=== PATIENT | female | born 1985 | race Caucasian/White ===

== ENCOUNTER → 2018-08-15 | Outpatient (CLI) | payer BC, OTHER | LOC: ULTRA 15:54 | DX: K82.8 Other specified diseases of gallbladder (principal) ==

== ENCOUNTER 2018-08-18 13:38 | Inpatient (IN) | payer BC, OTHER ==
[~2018-08-18] VITALS: Ht 162.6 cm; Wt 82.2 kg
--- NOTE | ~2018-08-18 | O ---
[facility] [place] [address] OPERATIVE REPORT Name: STERLING VERA Room #: 417-I ADM IN M.R.#: [id number] Admission: 08/18/18 Attend Phys: Wilfredo Walden MD Discharge: Date of : 89 Report #: [id number] THIS REPORT FOR: //name// CC: Sharath Walden DATE OF SERVICE: 08/21/2018 PREOPERATIVE DIAGNOSES: Cholecystitis with cholelithiasis, common bile duct stone and obstructive jaundice, status post endoscopic retrograde cholangiopancreatography. POSTOPERATIVE DIAGNOSES: Cholecystitis with cholelithiasis, common bile duct stone and obstructive jaundice, status post endoscopic retrograde cholangiopancreatography plus acute cholecystitis with cholelithiasis. SURGEON: Wilfredo Walden M.D. ANESTHESIA: General anesthesia. PROCEDURE: Laparoscopic cholecystectomy with cholangiogram. COMPLICATIONS: None. ESTIMATED BLOOD LOSS: 30 mL. DESCRIPTION OF PROCEDURE: With the patient under general anesthesia, abdomen was prepped and draped in a sterile fashion. IV antibiotic was administered. Two grams Ancef was given. Timeout was performed. A 0.25% Marcaine was used at the skin. Curvilinear incision was made infraumbilically, measuring about 2 cm. The fascia was then opened under visualization. 0 Vicryl suture placed on the fascia for retraction. Veress needle was then placed through the peritoneum. Abdominal cavity was insufflated with CO2. The urinary bladder was noted to be moderately full. A straight catheter was performed at the end of the procedure. The gallbladder was noted to be a distended, thickened and reddish appearance, consistent with acute cholecystitis. There was chronic adhesion, fatty tissue to the gallbladder and also along the liver. The adhesions were taken down. Gallbladder was able to be lifted over the liver. Gallbladder was decompressed with a needle and drawn off about 40 mL of dark bilious fluid. The gallbladder was then grasped with graspers. The adhesions were peeled all the way down. The lymph node over the cystic artery was isolated. This was seen first. The cystic duct was pretty thickened. The artery was also thickened. I went ahead and freed up the lymph node and removed it. This allowed the cystic artery to be identified and isolated. The cystic artery was then clipped x 2 proximally and 1 distally and then divided. This then allowed better access to the cystic [address] [address] OPERATIVE REPORT Name: STERLING VERA Room #: 417-I [facility] IN M.R.#: [id number] Admission: 08/18/18 Attend Phys: Wilfredo Walden MD Discharge: Date of : 89 Report #: [id number] duct. The common duct was looked for and felt to be medial and posteriorly located. Cystic duct was pretty thick and scarred. I was able to use a Laparoscopic Peanut and bluntly free the cystic duct. Laparoscopic Peanut was used initially to free the cystic artery also. The cystic duct was too big to put the clips on. Opening was made in the cystic duct, just below the junction to the gallbladder. Cholangiogram catheter was placed. I could not get a clip around the cystic duct. Instead, the clip was placed on the catheter and side wall of the cystic duct that was open. This, however, did not preclude contrast from escaping out of the cannulation site. However, I was able to see the common duct filled on operative cholangiogram. Because of the dye leaking at the cannulation site, I could not get the dye to go through into the duodenum. I did see some trace into the duodenum. No stones were seen in the common duct at the ERCP. The cholangiogram catheter was then removed. The rest of the cystic duct in this cannulation site was then divided. The cystic duct was then ligated with 0 PDS Endoloop. This did go across the cystic duct well. The grasper was placed on the end of the gallbladder and the gallbladder was freed and it was divided from the liver bed. There was quite a bit of thickening here and it was fairly difficult to do this part. However, with steady progressive dissection, the gallbladder was freed. Gallbladder was placed in the specimen bag. The gallbladder was retrieved through the infraumbilical port. Due to the thickening in the gallbladder, the fascia had to be opened. Once part of the gallbladder was able to be brought out through the incision, the gallbladder was opened. Clamps were placed and allowed visualization of the inside of the gallbladder. Multiple stones were then removed from the gallbladder using an Allis clamps. Once the gallbladder stones were mostly removed, the gallbladder then came out. Trocars were then replaced. Liver bed was checked, hemostasis excellent. Irrigation was aspirated out. Clips were intact. No bleedings identified. The trocars were then removed and CO2 was evacuated as much as possible. The fascia defect infraumbilically was then closed with a 0 Vicryl [id number] x 3. Skin was irrigated, closed with 5-0 PDS. Steri-Strips and Band-Aids applied. The patient was taken to the recovery room. She had a straight catheterization and obtained about 100 mL. The patient was taken to the recovery room. By: [id number] Wilfredo Walden MD /nt
--- NOTE | ~2018-08-18 | P ---
[facility] [place] [place] [address] PROCEDURE REPORT Name: STERLING VERA Room #: 417-I [facility] IN M.R.#: [id number] Admission: 08/18/18 Attend Phys: Wilfredo Walden MD Discharge: 08/22/18 Date of : 89 Report #: [id number] THIS REPORT FOR: //name// CC: Sharath Walden MD DATE OF SERVICE: 08/19/2018 PROCEDURE PERFORMED: ERCP with sphincterotomy and stone removal. HISTORY OF PRESENT ILLNESS: The patient is a 33-year-old female noticing recently darkening in her urine. She was seen as an outpatient. Liver function tests were noted to be significantly elevated. No previous history of liver disease. Her bilirubin as an outpatient was in the 5 range, today is 8.6. AST 334, lipase 469, direct bilirubin 7.3, alkaline phosphatase 355, ALT 724. WBC is 11.2, hemoglobin 13.8. She underwent an ultrasound of the abdomen on 08/15/2018, which showed multiple gallstones and sludge within the gallbladder. No evidence of gallbladder wall thickening or pericholecystic fluid, positive Acosta sign was noted. She then underwent an MRCP yesterday, which showed cholelithiasis as well as choledocholithiasis. There is rather marked intrahepatic biliary ductal dilation, suggesting distal duct obstruction secondary to choledocholithiasis. Also, calculus was noted in the distal cystic duct. Plan is for ERCP. DESCRIPTION OF PROCEDURE: The risks and benefits of the procedure were explained to the patient, those risks including but not limited to bleeding, perforation, the risk of sedation as well as the potential risk for post-ERCP pancreatitis. She understood these risks and gave informed consent. The procedure was performed under general anesthesia in the Interventional Radiology suite. The patient had an hCG that was negative yesterday. She is already on IV meropenem every 8 hours. The patient was also given 50 mg indomethacin rectal suppository prior to the procedure. Next, using a standard Olympus side-viewing ERCP scope, the scope was placed in the patient's mouth and advanced under direct vision through the esophagus, stomach and into the second portion of the duodenum. The major papilla was identified and normal in appearance. Next, using a Donny-Cambiatta 0.025 dome tipped catheter, common bile duct was attempted to be cannulated. The pancreatic duct was cannulated several times. I tried several different positions as well as a long and short position of the scope without being able to advance the sphincterotome into the common bile duct. Therefore, a 0.021 sphincterotome was used and after several attempts, I was able to cannulate the common bile duct. A cholangiogram was then obtained. Several filling defects were noted consistent with stones. The distal common bile duct was mildly dilated, however, the intrahepatic near the bifurcation were more significantly dilated. At this point, a wire was advanced into the intrahepatic ducts and a sphincterotomy was performed without [facility] [address] [place] [address] PROCEDURE REPORT Name: STERLING VERA Room #: 417-I [facility] IN ..#: [id number] Admission: 08/18/18 Attend Phys: Wilfredo Walden MD Discharge: 08/22/18 Date of : 89 Report #: [id number] difficulty. At this point, a large amount of sludge and debris started exiting the sphincterotomy. The sphincterotome was then removed and a balloon catheter was then used. Several balloon sweeps were performed. A large amount of debris and small stones were removed with each balloon sweep. No significant further debris or stones was noted. At this point, a balloon occlusion cholangiogram was obtained. There did appear to be another filling defect. Therefore, the balloon catheter was removed leaving the guidewire in place and a wire basket was then inserted into the common bile duct. I then performed several sweeps with the wire basket and 2 further stones were removed at this point, more sweeps yielded no further stones. At this point, the bile that was draining was much more improved and clear in nature. At this point, the basket and wire removed. The scope was then withdrawn and the procedure terminated. The patient tolerated the procedure well. IMPRESSION: 1. Dilated common bile duct, but increased dilation of the bifurcation and intrahepatic ducts. 2. Status post sphincterotomy. 3. Large amount of sludge and debris were removed on balloon sweeps as well as wire baskets, several stones were also removed as described above. RECOMMENDATIONS: 1. Observe the patient post-procedure. 2. We will repeat liver function tests in the morning. 3. Plan is for a laparoscopic cholecystectomy with Dr. Wilfredo Walden tomorrow. Thank you for allowing me to participate in her care. <ELECTRONICALLY SIGNED> By: Ruslan Valentino MD 08/22/18 1530 [id number] Ruslan Valentino MD /nt
--- NOTE | ~2018-08-18 | H ---
[facility] [address] [place] [address] HISTORY AND PHYSICAL Name: STERLING VERA Room #: 417-I ADM IN .R.#: [id number] Admission: 08/18/18 Attend Phys: Wilfredo Walden MD Discharge: Date of : 89 Report #: [id number] THIS REPORT FOR: //name// CC: YEIMY Walden DATE OF SERVICE: 08/18/2018 ADMITTING DIAGNOSIS: Obstructive jaundice, likely due to an obstructing common bile duct stone. HISTORY OF PRESENT ILLNESS: The patient is a 33-year-old who has had heartburn for about 5-6 months. At one point, she went to urgent care, and the patient was felt to have heartburn and was given a GI cocktail. The patient complained of upper abdominal pain underneath the ribcage on both sides. This tends to occur at nighttime. She has had some pain that goes into her back. No nausea or vomiting. No family history of gallbladder disease that she is aware of. A month ago, the patient did have recurrence of the symptom. This was after weekend of going out with her friends. She ended up coming home and not feeling well. She has had associated bloating, increased gas and some diarrhea. She has felt tired for the last month. Last , the patient went to see Dr. Reeves's office and was seen by nurse practitioner. The patient did complain of dark urine and fudge candy maker color stool and continued abdominal discomfort and feeling of bloating and gas feeling. She had an appointment to see me today. The patient went back to the office and was noted on her labs from last that she is jaundiced. She was working to see me. She did have obvious jaundice when you look at her. Bilirubin was 5.4. The rest her liver enzymes were also elevated, alkaline phosphatase is 342. SGOT is 353, SGPT is 626. The patient's ultrasound did show gallstone sludge within the gallbladder, no gallbladder wall thickening. Bile duct was 6 mm. After seeing her in the office and finding that she has a complication of gallbladder disease with obstructive jaundice, likely common duct stone, she is recommended to be hospitalized and proceeding with treatment of her disease process. The patient understands the risk of developing cholangitis because the duct is obstructed. PAST MEDICAL HISTORY: She is healthy. No heart disease, lung disease, diabetes, no kidney or liver disease, no bleeding disorder, no history of blood clot. MEDICATIONS: The patient takes control. Last Saturday, she was started on Cipro and metronidazole for urinary tract infection. She was given some hydrocodone to take as needed. FAMILY HISTORY: Father had a brain aneurysm. He is alive at age 65. Mother is alive at age 64. There is cancer that runs in the family. [facility] [address] [place] [address] HISTORY AND PHYSICAL Name: STERLING VERA Room #: 417-I ADM IN M.R.#: [id number] Admission: 08/18/18 Attend Phys: Wilfredo Walden MD Discharge: Date of : 89 Report #: [id number] SOCIAL HISTORY: The patient works as an deputy prosecuting attorney. The patient does not smoke. She occasionally drinks. REVIEW OF SYSTEMS: No chest pain or shortness of breath. No headache or blurred vision. No numbness or weakness. Mild itching. PHYSICAL EXAMINATION: HEENT: She is obviously jaundiced, particularly in the sclerae. Pupils react to light. Extraocular muscles are intact. Oropharynx clear. NECK: Soft and supple, no masses, no JVD. LUNGS: Clear to auscultation. HEART: Regular rate and rhythm. No murmur or gallop. ABDOMEN: She does have moderate tenderness in the right upper quadrant. No mass, guarding or rigidity. No ascites. EXTREMITIES: No cyanosis, clubbing or edema. IMPRESSION: The patient is a 33-year-old who last noticed dark urine, light stool. She has had issues for 5-6 months of upper abdominal discomfort and bloating, increased gas. The patient also has felt tired and weak for the last month. The patient is found to have obstructive jaundice secondary to gallstone. She likely has complications from gallbladder disease with a stone, I believe now in the duct. The patient is recommended to be admitted for treatment of this disease and to prevent getting worse and developing cholangitis. The patient will be on IV fluids and n.p.o. We will consult Gastroenterology, and I did speak with Dr. Valentino. Possible MRCP. Possible ERCP tomorrow since she has eaten this morning. Liver function tests, CBC will be repeated in the morning. Pain medication and antinausea medicines ordered. We will go ahead and start her on Invanz IV antibiotics. <ELECTRONICALLY SIGNED> By: Wilfredo Walden MD 08/20/181221 01 19 Wilfredo Walden MD /nt
--- NOTE | ~2018-08-18 | PATH ---
[facility] [address] [place] [address] PATHOLOGY RPT PROCEDURE Name: STERLING VERA Room #: 417-I [facility] IN M.R.#: [id number] Admission: 08/18/18 Date of : 89 Discharge: 08/22/18 Report #: [id number] Path Case #: [id number] [facility] Accession Number: [id number] . 01 Material submitted: . GALLBLADDER . 01 Clinical history: . Cholecystitis, obstructive jaundice, cholelithiasis . 02 Diagnosis: Gallbladder, "gallbladder, cholecystectomy": - Subacute and chronic cholecystitis with cholelithiasis. . (SHA:mml; 08/25/18) QLM/08/25/2018 . 02 Electronically signed: . Arley Morales MD, Pathologist NPI- [id number] . 01 Gross description: . The specimen is received in formalin, labeled "Sterling Kashif, gallbladder". Received is a previously opened gallbladder measuring 8.9 x 4.2 x 2.2 cm in greatest dimensions displaying pink-dai to adipose covered serosal surfaces. Opening the gallbladder reveals a velvety, light dai mucosa with a gallbladder wall thickness of 0.1 cm. Calculi are present displaying a dark green and smooth appearance, and no masses or lesions are noted grossly. Packer Insulation sections, to include the proximal margin, are submitted in cassette A1. (CAA; 08/22/2018) QAC/QAC . 02 Pathologist provided ICD-10: K80.12 . 02 CPT . 290584 Specimen Comment: A courtesy copy of this report has been sent to Specimen Comment: [phone], . Specimen Comment: Report sent to / DR PETERS Performed at: [address] [id number] MD Jesse Alberto MD Phone: [phone] Performed at: [address] [address] PATHOLOGY RPT PROCEDURE Name: STERLING VERA Room #: 417-I [facility] IN M.R.#: [id number] Admission: 08/18/18 Date of : 89 Discharge: 08/22/18 Report #: [id number] Path Case #: [id number] [address] [place] [id number] MD Maria E Vance MD Phone: [phone]
[2018-08-18 15:32] VITALS: BP 140/88
[2018-08-18 20:26] VITALS: BP 138/83
[2018-08-19 04:13] VITALS: BP 149/87
[2018-08-19 06:16] LABS: HEMATOCRIT 41.4 % (37.0-47.0); HEMOGLOBIN 13.8 gm/dL (12.0-15.0); MCH 30.1 pg (26.0-34.0); MCHC 33.4 g/dL (28.0-37.0); MCV 90.1 fL (80.0-100.0); RBC 4.6 mil/uL (4.20-5.00); RDW 13.6 % (10.5-14.5); WBC 11.2 thou/uL (4.0-11.0)
[2018-08-19 06:35] LABS: ALBUMIN 2.8 g/dL (3.4-5.0); CALCIUM 9.1 mg/dL (8.5-10.1); CREATININE 0.6 mg/dL (0.6-1.0); DIRECT BILIRUBIN 7.3 mg/dL (<0.1-0.3); POTASSIUM 3.8 mmol/L (3.5-5.1); TOTAL BILIRUBIN 8.7 mg/dL (<0.1-1.0); TOTAL PROTEIN 7.3 g/dL (6.4-8.2)
[2018-08-19 07:38] VITALS: BP 140/85
[2018-08-19 14:33] VITALS: BP 132/68
[2018-08-19 17:09] VITALS: BP 130/83
[2018-08-19 20:05] VITALS: BP 121/80
[2018-08-20 03:45] VITALS: BP 116/70
[2018-08-20 06:15] LABS: ALBUMIN 2.6 g/dL (3.4-5.0); DIRECT BILIRUBIN 2.5 mg/dL (<0.1-0.3); TOTAL BILIRUBIN 3.3 mg/dL (<0.1-1.0); TOTAL PROTEIN 6.7 g/dL (6.4-8.2)
[2018-08-20 07:10] VITALS: BP 118/73
[2018-08-20 16:44] VITALS: BP 117/67
[2018-08-20 19:16] VITALS: BP 120/70
[2018-08-21 04:05] VITALS: BP 11/65; BP 111/65
[2018-08-21 05:30] LABS: ALBUMIN 2.6 g/dL (3.4-5.0); DIRECT BILIRUBIN 1.6 mg/dL (<0.1-0.3); TOTAL BILIRUBIN 2.4 mg/dL (<0.1-1.0); TOTAL PROTEIN 6.4 g/dL (6.4-8.2)
[2018-08-21 06:48] VITALS: BP 125/70
[2018-08-21 12:52] VITALS: BP 121/71
[2018-08-21 12:53] VITALS: BP 123/77
[2018-08-21 16:39] VITALS: BP 151/89
[2018-08-21 20:17] VITALS: BP 122/63
[2018-08-22 04:12] VITALS: BP 115/70
[2018-08-22 05:40] LABS: HEMATOCRIT 35.7 % (37.0-47.0); HEMOGLOBIN 12.2 gm/dL (12.0-15.0); MCH 30.7 pg (26.0-34.0); MCV 90.2 fL (80.0-100.0); RBC 3.96 mil/uL (4.20-5.00); RDW 13.8 % (10.5-14.5); WBC 11.6 thou/uL (4.0-11.0)
[2018-08-22 06:02] LABS: ALBUMIN 2.7 g/dL (3.4-5.0); CALCIUM 8.6 mg/dL (8.5-10.1); CREATININE 0.7 mg/dL (0.6-1.0); POTASSIUM 3.9 mmol/L (3.5-5.1); TOTAL BILIRUBIN 2.2 mg/dL (<0.1-1.0); TOTAL PROTEIN 6.8 g/dL (6.4-8.2)
[2018-08-22 07:00] VITALS: BP 114/80
[2018-08-22] MEDS ORDERED: HYDROCODONE-AP1 EAC6 PO (12:34)
[2018-08-22 13:19] VITALS: BP 114/80
== END 2018-08-22 14:56 | disposition home or self-care (01) | DRG 419 ==
LOC: 4E 13:38 → SICU 08-20 17:56 → 4E 08-20 18:10 → ENTRNSPT 08-22 14:47 → EDTRNSPTSTS 08-22 14:52 → 4E 08-22 14:56
PROVIDERS: Internal Medicine Gastroenterology; Surgery
DX: K80.43 Calculus of bile duct with acute cholecystitis with obstruction (principal); E11.9 Type 2 diabetes mellitus without complications; Z82.49 Family history of ischemic heart disease and other diseases of the circulatory system; Z28.21 Immunization not carried out because of patient refusal; Z79.899 Other long term (current) drug therapy
CPT/HCPCS: 10783; 50010; 50101; 50411; 50555; 50558; 51297; 51489; 51687; 53307; 53310; 53312; 55245; 55317; 56462; 56525; 56526; 62110; 62900; 70005